=== PATIENT | female | born 1960 | race African-American/Black ===

== ENCOUNTER 2017-01-10 06:04 | Day surgery (SDC) | payer OTHER ==
[~2017-01-10 06:04] MED LIST: NACL 0.9% 1000 ML 1,000 ML IV SCH; PEPCID PO NR; VERSED IV NR
[2017-01-10] MEDS ORDERED: ZOFRAN ONE (06:58)
[2017-01-10] MEDS ORDERED: DECADRON ONE (06:58)
[2017-01-10] MEDS ORDERED: DILAUDID ONE (06:58)
[2017-01-10] MEDS ORDERED: DIPRIVAN 10 MG/ML IV ONE (06:58)
[2017-01-10] MEDS ORDERED: XYLOCAINE MPF 2% ONE (06:58)
[2017-01-10] MEDS ORDERED: SUBLIMAZE ONE (06:58)
--- NOTE | 2017-01-10 07:34 | Anesthesia Consultation ---
Anesthesia Consult and Med Hx Date of service: 01/10/17 - Airway Anesthetic Teeth Evaluation: Poor, Partials ROM Head & Neck: Adequate Mental/Hyoid Distance: Adequate Mallampati Class: Class II Intubation Access Assessment: Probably Good - Pulmonary Exam CTA: Yes - Cardiac Exam Cardiac Exam: RRR - Pre-Operative Health Status ASA Pre-Surgery Classification: ASA2 Proposed Anesthetic Plan: General - Cardiovascular System Hx Hypertension: Yes (x 13 yrs) - Central Nervous System Hx Psychiatric Problems: No - Other Systems Hx Cancer: No - Additional Comments Anesthesia Medical History Comments: High cholesterol
--- NOTE | 2017-01-10 07:35 | Anesthesia Day of Surgery ---
Anesthesia Day of Surgery - Day of Surgery Patient Examined: Yes Patient H&P Reviewed: Yes Patient is NPO: Yes
[2017-01-10] MEDS ORDERED: VERSED IV NR (08:00)
[2017-01-10] MEDS ORDERED: LUGOL'S SOLUTION 5% TP ONE ×2 (08:12→09:05)
[2017-01-10] MEDS ORDERED: MONSEL'S TP ONE ×2 (08:13→09:49)
[2017-01-10] MEDS ORDERED: XYLOCAINE 1%/ EPI 1:100,000 INFILTRATI ONE (08:15)
[2017-01-10] MEDS ORDERED: SILVER NITRATE TP ONE ×2 (08:46→08:47)
[2017-01-10] MEDS ORDERED: ePHEDrine SULFATE ONE (08:55)
[2017-01-10] MEDS ORDERED: NACL 0.9% IR ONE (09:05)
--- NOTE | 2017-01-10 09:33 | Post Anesthesia Evaluation ---
- Post Anesthesia Evaluation Patient Participated: Yes Airway Patent: Yes Stable Respiratory Function: Yes Nausea/Vomiting: No Temp > 96.8F: Yes Pain Manageable: Yes Adequeate Hydration: Yes Anesthesia Complications: No Block Receding Appropriately: Not Applicable Patient on Ventilator: No
[2017-01-10] MEDS ORDERED: MORPHINE IV PRN (09:36)
[2017-01-10] MEDS ORDERED: ZOFRAN IV PRN (09:36)
[2017-01-10] MEDS ORDERED: NORCO 5/325 PO PRN (09:36)
--- NOTE | 2017-01-10 10:02 | Operative Report ---
Operative Report Operative Report: Preop: Abnormal pap ASCUS and NE Postop: Same as above Procedure: LEEP with top hat Surgeon: Dr. Gonzalez EBL: min Anesthesia : general UOP : clear yellow urine see anethesia record The patient was brought to the Operating Room with an IV in place. Anesthetic was administered and she was placed in the lithotomy position. The patient was placed in dorsal lithotomy position and an insulated speculum, with the smoke evacuation tube placed in the vagina to gain visualization of the cervix. Lugol's solution was placed on the cervix to visualize the entire lesion The electrosurgical generator was set at 30-50 garza on blend The lesion was excised in one pass. The loop was passed simultaneously around and under the transformation zone. The entire transformation zone was excised to a depth of 5-8 mm.. Lesion extended into the endocervical canal deeper than 5-8 mm depth, a smaller rectangular loop (top hat) was performed. Minimal bleeding noted Monsels solution used specimen sent to path for evaluation Patient tolerated the procedure well Sponge and needle count correct x 2
--- NOTE | 2017-01-10 10:06 | Discharge Summary ---
Providers - Providers Date of Admission: 01/10/17 Date of discharge: 01/10/17 Attending physician: SHARON MADDOX MD Hospitalization Reason for admission: other (LEEP procedure) Procedure: other (Leep) Discharge diagnosis: other (s/p Leep ) Condition at discharge: Good Disposition: DISCHARGED TO HOME OR SELFCARE Plan - Discharge Medications Prescriptions: Ibuprofen [Motrin] 600 mg PO Q8H PRN #20 tablet PRN Reason: Pain oxyCODONE /ACETAMINOPHEN [Percocet 5/325] 1 tab PO Q6HR PRN #10 tablet PRN Reason: Pain - Provider Discharge Summary Activity: routine Diet: routine Instructions: routine Additional instructions: [] Smoking cessation referral if applicable(refer to patient education folder for contact #) [] Refer to [facility] Booklet Call your doctor immediately for: * Fever > 100.5 * Heavy vaginal bleeding ( >1 pad per hour) * Severe persistent headache * Shortness of breath * Reddened, hot, painful area to leg or breast * Drainage or odor from incision. * Keep incision clean and dry at all times and follow doctor's instructions regarding bathing/showering - Follow up plan Follow up: SHARON MADDOX MD [Staff Physician] - 7 Days
[2017-01-10 10:14] VITALS: BP 128/71
--- NOTE | 2017-01-10 10:57 | Post Anesthesia Evaluation ---
- Post Anesthesia Evaluation Patient Participated: Yes Airway Patent: Yes Stable Respiratory Function: Yes Nausea/Vomiting: No Temp > 96.8F: Yes Pain Manageable: Yes Adequeate Hydration: Yes Anesthesia Complications: No
== END 2017-01-10 10:45 | disposition home or self-care (01) ==
LOC: OR 06:04
PROVIDERS: ATTEND Obstetrics & Gynecology
DX: N72 Inflammatory disease of cervix uteri (principal); N88.8 Other specified noninflammatory disorders of cervix uteri; I10 Essential (primary) hypertension; E78.00 Pure hypercholesterolemia, unspecified; Z83.3 Family history of diabetes mellitus; Z82.49 Family history of ischemic heart disease and other diseases of the circulatory system; Z79.899 Other long term (current) drug therapy
CPT/HCPCS: 57522; 88305; 88307; J1100; J2250; J2405; J2704; J3010; J7030; J1170